=== PATIENT | female | born 1995 | race African-American/Black ===

== ENCOUNTER 2020-06-29 14:07 | Emergency (ER) | payer BC, SELFPAY ==
[2020-06-29 14:12] VITALS: BP 122/88; PULSE 80; RESP 18; TEMP 36.6; O2SAT 99
--- NOTE | 2020-06-29 14:28 | PC.NURSE ---
Blood Glucose was 66 at 14:28
[2020-06-29 14:29] LABS: Glucose Point of Care 66 (65-105)
[2020-06-29 14:41] LABS: Basophils Percent Auto 0.5 % (0.2-1.2); Eosinophils Absolute Auto 0.1 K/mm3 (0-0.3); Eosinophils Percent Auto 1.5 % (0-4.4); Hematocrit 44.9 % (37.0-47.0); Hemoglobin 14.4 g/dL (12.0-15.0); Immature Granulocyte Absolute 0.01 K/mm3 (0.00-0.031); Immature Granulocyte Percent A 0.2 % (0-0.5); Lymphocytes Absolute Auto 2.18 K/mm3 (0.9-3.2); Lymphocytes Percent Auto 35.3 % (18.3-44.2); Mean Corpuscular HGB Conc 32.1 g/dl (32-36); Mean Corpuscular Volume 84.2 fl (80-100); Mean Platelet Volume 10.7 fl (7.4-10.4); Monocytes Absolute Auto 0.4 K/mm3 (0.1-0.6); Neutrophils Absolute Auto 3.5 K/mm3 (1.3-6.7); Neutrophils Percent Auto 56.5 % (45.5-73.1); Platelet Count Result 275 k/mm3 (150-375); Red Blood Count 5.33 M/mm3 (4.2-5.4); Red Cell Distribution Width 14.8 % (11.5-14.5); White Blood Count 6.2 K/mm3 (4.5-10.0)
[2020-06-29] MEDS: SODIUM CHLORIDE 0.9% IV 1,000 ML 999 ML (14:49)
[2020-06-29 14:55] LABS: Alanine Aminotransferase 14 U/L (4-35); Albumin Level 4.5 g/dL (3.5-5.1); Alkaline Phosphatase 109 U/L (38-126); Anion Gap 11 mmol/L (8-16); Aspartate Amino Transferase 26 U/L (14-36); Bilirubin,Total 0.3 mg/dL (0.2-1.3); Blood Urea Nitrogen 4 mg/dL (7-17); Calcium 9.4 mg/dL (8.4-10.2); Carbon Dioxide 24 mmol/L (22-30); Chloride 102 mmol/L (98-107); Estimated CRCL calculation 115 ml/min; Estimated Glomerular Filt Rate > 60; Glucose 90 mg/dL (65-105); Lipase 37 U/L (23-300); Potassium 2.9 mmol/L (3.4-5.0); Sodium 137 mmol/L (137-145)
--- NOTE | 2020-06-29 15:27 | ED.GENADULT ---
HPI - General Adult General Chief complaint: Nausea/Vomiting/Diarrhea Stated complaint: REACTIVE HYPOGLYCEMIA, N/V Time Seen by Provider: 06/29/20 14:37 Source: patient Mode of arrival: ambulatory Limitations: no limitations History of Present Illness HPI narrative: 24-year-old female with a documented history of reactive hypoglycemia, diagnosed in 2012. She states that her last episode was probably 1 year ago. This episode started last evening, she was able to eat a light dinner but was feeling nauseous already she took her medication but was unable to stop the vomiting. She was seen in another facility today and they tried to treat her with glucose tablets which she could not take because she was vomiting. Her glucose here was 66, she states at home her morning glucoses are generally 65-70. She denies any recent illnesses trigger. Onset (ago): hour(s) Related Data Allergies Allergy/AdvReac Type Severity Reaction Status Date / Time Sulfa (Sulfonamide Allergy Intermediate rash Verified 10/13/18 12:18 Antibiotics) beeswax Allergy Unknown rash/swelli Verified 04/28/18 11:56 ng nickel Allergy Unknown rash Verified 04/28/18 11:56 Review of Systems Review of Systems: All systems reviewed & are unremarkable except as noted in HPI and below Exam Const: General: no acute distress and alert Orientation/consciousness: patient oriented x3 HENMT: Head: normal to inspection Mouth: Yes moist mucous membranes Resp: Effort & Inspection: normal respiratory effort Auscultation: clear to auscultation bilaterally Cardio: Rate: regular rate Rhythm: regular rhythm GI: GI Palp: Yes Soft to palpation Auscultation: normal bowel sounds Skin: General skin exam: normal color Rashes: no rashes Course Course Emergency Course: Patient states that she is feeling better after the D5 infusion, back to her normal self. Will check [id number] glucose and do a p.o. challenge. Tolerating water and crackers. Ready for discharge. Vital Signs Vital signs: Vital Signs Temperature 36.6 C 06/29/20 14:12 Pulse Rate 80 06/29/20 14:12 Respiratory Rate 18 06/29/20 14:12 Blood Pressure 122/88 06/29/20 14:12 Pulse Oximetry 99 06/29/20 14:12 Temperature 36.6 C 06/29/20 14:12 Pulse Rate 78 06/29/20 15:54 Respiratory Rate 18 06/29/20 15:54 Blood Pressure 132/68 06/29/20 15:54 Pulse Oximetry 99 06/29/20 15:54 Medical Decision Making Vital Signs Vital Signs: Vital Signs Temperature 36.6 C 06/29/20 14:12 Pulse Rate 80 06/29/20 14:12 Respiratory Rate 18 06/29/20 14:12 Blood Pressure 122/88 06/29/20 14:12 Pulse Oximetry 99 06/29/20 14:12 Temperature 36.6 C 06/29/20 14:12 Pulse Rate 78 06/29/20 15:54 Respiratory Rate 18 06/29/20 15:54 Blood Pressure 132/68 06/29/20 15:54 Pulse Oximetry 99 06/29/20 15:54 Lab Data Result diagrams: 06/29/20 14:35 06/29/20 14:35 Labs: Lab Results 06/29/20 06/29/20 06/29/20 Range/Units 14:25 14:35 14:35 WBC 6.2 (4.5-10.0) K/mm3 RBC 5.33 (4.2-5.4) M/mm3 Hgb 14.4 (12.0-15.0) g/dL Hct 44.9 (37.0-47.0) % MCV 84.2 (80-100) fl MCH 27.0 (26-34) pg MCHC 32.1 (32-36) g/dl RDW 14.8 H (11.5-14.5) % Plt Count 275 (150-375) k/mm3 MPV 10.7 H (7.4-10.4) fl Immature Gran % (Auto) 0.2 (0-0.5) % Neut % (Auto) 56.5 (45.5-73.1) % Lymph % (Auto) 35.3 (18.3-44.2) % [place] % (Auto) 6.0 (2.6-8.5) % Eos % (Auto) 1.5 (0-4.4) % Baso % (Auto) 0.5 (0.2-1.2) % Lymph # (Auto) 2.18 (0.9-3.2) K/mm3 [place] # (Auto) 0.4 (0.1-0.6) K/mm3 Eos # (Auto) 0.1 (0-0.3) K/mm3 Baso # (Auto) 0.0 (0.0-0.1) K/mm3 Abs Immat Gran (auto) 0.01 (0.00-0.031) K/mm3 Absolute Neuts (auto) 3.5 (1.3-6.7) K/mm3 Absolute Nucleated RBC 0.0 (0.0-0.012) K/mm3 Nucleated RBC % 0.0 (0.0-0.2) % Sodium 137 (137-145) mmol/L Potassium 2.9 L
[2020-06-29 15:32] LABS: Add Urine Microscopic? NO; Appearance Urine Clear (Clear); Bilirubin Urine Negative (Negative); Blood Urine Negative (Negative); Color Urine Yellow (Yellow); Glucose Urine UA Negative (Negative); Ketones Urine Negative (Negative); Leukocyte Esterase Ur Negative LEU/UL (Negative); Nitrate Urine Negative (Negative); Protein Urine Negative (Negative); Specific Grav Ur 1.017 (1.001-1.035); Urobilinogen Urine Negative mg/dL (<2.0)
[2020-06-29] MEDS: DEXTROSE 5%/0.9% SOD CHL 1,000 ML 999 ML IV CONT (15:53)
[2020-06-29 15:54] VITALS: BP 132/68; PULSE 78; RESP 18; O2SAT 99
--- NOTE | 2020-06-29 16:54 | PC.NURSE ---
Blood Glucose was 221 at 1654
[2020-06-29 16:57] LABS: Glucose Point of Care 221 (65-105)
[2020-06-29 18:37] VITALS: BP 132/78; PULSE 78; RESP 18; O2SAT 99
== END 2020-06-29 18:38 | disposition home or self-care (01) ==
PROVIDERS: Emergency Provider Emergency Medicine
DX: E16.1 Other hypoglycemia (principal)
CPT/HCPCS: 36415; 80053; 81003; 81025; 83690; 85025; 96360; 96361; 99283; J7030; J7042

== ENCOUNTER 2023-01-21 15:29 | Emergency (ER) | payer SELFPAY ==
[2023-01-21] VITALS (28 sets, daily range): BP systolic 105–139; BP diastolic 58–92; PULSE 97–122; RESP 16–35; TEMP 36.6–37.9; O2SAT 99–100
--- NOTE | ~2023-01-21 | CT_ITS ---
EXAMINATION: CT abdomen pelvis w con INDICATION: Abdominal pain, nausea and vomiting TECHNIQUE: Computed tomographic images of the abdomen and pelvis were obtained after the administrati on of 100 cc of Omnipaque 350 intravenous contrast. The dose-length product (DLP) was 509.22 mGy-cm. Automated exposure control and iterative reconstruction technique were employed. COMPARISON: None available FINDINGS: The lung bases are clear. The heart size is normal. The liver, spleen, pancreas, gallbladde r, and adrenal glands are normal. The kidneys are unremarkable. No pathologically enlarged abdominal or pelvic lymph nodes are identified. There is no free intraperitoneal gas or evidence of bowel obstr uction. The appendix is normal. There is liquid stool in the colon to the level of the rectum. A smal l amount of free fluid in the pelvis is likely physiologic. IMPRESSION: 1. Liquid stool in the colon to the level of the rectum, consistent with diarrhea. Reviewed, dictated and finalized at location [facility]. [facility] IMPRESSION: 1. Liquid stool in the colon to the level of the rectum, consistent with diarrh ea.
--- NOTE | ~2023-01-21 | XR_ITS ---
EXAMINATION: XR chest 2V DATE: 01/21/2023 17:36 INDICATION: Epigastric pain TECHNIQUE: PA and lateral views of the chest are obtained. COMPARISON: None available FINDINGS: The lungs are free of acute opacities. No pleural effusion or pneumothorax. The cardiomedia stinal silhouette is normal. The visualized bones and soft tissues are unremarkable. IMPRESSION: 1. No acute cardiopulmonary abnormality. Reviewed, dictated and finalized at location F. [employer]
[2023-01-21 16:47] LABS: Glucose Point of Care 85 mg/dl (65-105)
[2023-01-21 16:59] LABS: Basophils Percent Auto 0.1 % (0.2-1.2); Eosinophils Percent Auto 0.1 % (0-4.4); Hemoglobin 13.6 g/dL (12.0-15.0); Immature Granulocyte Absolute 0.02 K/mm3 (0.00-0.031); Immature Granulocyte Percent A 0.2 % (0-0.5); Lymphocytes Absolute Auto 0.55 K/mm3 (0.9-3.2); Lymphocytes Percent Auto 5.9 % (18.3-44.2); Mean Corpuscular HGB Conc 31.6 g/dl (32-36); Mean Corpuscular Hemoglobin 25.4 pg (26-34); Mean Corpuscular Volume 80.2 fl (80-100); Mean Platelet Volume 10.1 fl (7.4-10.4); Monocytes Absolute Auto 0.5 K/mm3 (0.1-0.6); Monocytes Percent Auto 4.9 % (2.6-8.5); Neutrophils Absolute Auto 8.3 K/mm3 (1.3-6.7); Neutrophils Percent Auto 88.8 % (45.5-73.1); Platelet Count Result 351 k/mm3 (150-375); Red Blood Count 5.36 M/mm3 (4.2-5.4); Red Cell Distribution Width 15.6 % (11.5-14.5); White Blood Count 9.3 K/mm3 (4.5-10.0)
[2023-01-21 17:08] LABS: Alanine Aminotransferase 22 U/L (6-35); Albumin Level 4.4 g/dL (3.5-5.1); Alkaline Phosphatase 146 U/L (38-126); Anion Gap 11 mmol/L (8-16); Aspartate Amino Transferase 29 U/L (14-36); Bilirubin,Total 0.8 mg/dL (0.2-1.3); Blood Urea Nitrogen 9 mg/dL (7-17); Calcium 8.9 mg/dL (8.4-10.2); Carbon Dioxide 21 mmol/L (22-30); Chloride 106 mmol/L (98-107); Estimated CRCL calculation 114 ml/min; Estimated Glomerular Filt Rate > 60; Glucose 108 mg/dL (65-110); Lipase 41 U/L (23-300); Potassium 3.8 mmol/L (3.4-5.0); Sodium 138 mmol/L (137-145)
--- NOTE | 2023-01-21 17:19 | ECG_ITS ---
Measurements Intervals Marcus Rate: 107 P: 51 ID: [id number] QRS: 67 QRSD: 85 T: 15 QT: 328 QTc: 438 Interpretive Statements SINUS TACHYCARDIA BORDERLINE ST-T WAVE ABNORMALITY- ANT/INF LEADS ABNORMAL ECG NO PREVIOUS ECG AVAILABLE FOR COMPARISON Electronically Signed On 01-21-2023 19:19:56 MORTGAGE CLERK by Nicholas Yang D.O.
--- NOTE | 2023-01-21 17:20 | ED.NAVMDI ---
HPI - Nausea/Vomiting/Diarrhea General Chief complaint: Nausea/Vomiting/Diarrhea Stated complaint: Low blood sugar Time Seen by Provider: 01/21/23 17:10 History of Present Illness HPI Narrative: 27-year-old female with a history of reactive hypoglycemia reports for epigastric abdominal pain and vomiting x17 episodes today. Patient states she went to bed last night feeling normal, woke up this morning feeling ill. Patient reports she has not been able to eat or drink much of anything today, other than sips of Gatorade. She states her lowest blood glucose at home was 72. She has not been able to keep down her oral glucose tabs. Patient reports she was diagnosed with bronchitis 2 weeks ago at urgent care, and has been taking amoxicillin ever since. Reports she has a couple of tabs left. Pt also c/o chills and diarrhea today. She does report a small amount of blood tinges vomit today while in triage, but denies other episodes of hematemesis or hemoptysis. She denies fever, body aches, back pain, cough, shortness of breath, chest pain, congestion, urinary complaints, melena, hematochezia, coffee-ground emesis. Related Data Home Medications Medication Instructions Recorded Confirmed sertraline 100 mg tablet (Zoloft) 100 mg PO DAILY 11/07/20 Allergies Allergy/AdvReac Type Severity Reaction Status Date / Time Sulfa (Sulfonamide Allergy Intermediate rash Verified 11/07/20 14:13 Antibiotics) beeswax Allergy Unknown rash/swelli Verified 11/07/20 14:13 ng nickel Allergy Unknown rash Verified 11/07/20 14:13 Review of Systems Review of Systems: CONSTITUTIONAL: Denies fever EYES: Denies visual changes, redness, or discharge. ENT: Denies rhinorrhea, congestion, sore throat, or otalgia. CARDIOVASCULAR: Denies chest pain, palpitations, or edema. RESPIRATORY: Denies cough or dyspnea. GASTROINTESTINAL: See HPI GENITOURINARY: Denies dysuria or hematuria. SKIN: Denies rash or itching. MUSCULOSKELETAL: Denies back pain, joint pain, or myalgia. NEUROLOGIC: Denies headache, numbness, dizziness, or weakness. PSYCHIATRIC: Denies anxiety or depression. [facility] Social History Social History Smoking status: Never smoker Alcohol intake: never Substance use: never Exam Narrative: GENERAL: Well-appearing, well-nourished, and in no acute distress. HEAD: Normocephalic, atraumatic. EYES: PERRLA and EOMI. ENT: Nares clear, no rhinorrhea or epistaxis. Mucous membranes moist. Oropharynx without tonsillar hypertrophy exudate or other lesions. NECK: Supple. No adenopathy or masses. No carotid bruits or JVD CHEST: Clear to auscultation. No respiratory distress. No wheezes rales or rhonchi HEART: Regular rate and rhythm. No murmur heard. Normal peripheral pulses. ABDOMEN: Soft, nondistended, normal active bowel sounds. Tenderness to deep palpation of the epigastrium with voluntary guarding. No masses, rigidity. No peritoneal signs. EXTREMITIES: Normal range of motion. No edema. SKIN: Warm, dry, no rash. NEURO: No focal deficits. Alert and oriented x3. PSYCH: Normal mood and affect. Course Course Emergency Course: 1914: Patient reevaluated. She reports she is feeling much better, no vomiting since she received medications and fluids. Heart rate down to 102 in the room. Discussed lab and imaging findings with the patient's thus far, and spoke with her that her symptoms are likely due to gastroenteritis and dehydration. Offered another liter of fluids to patient for tachycardia. She agrees with the plan. Vital Signs Vital signs: Vital Signs Temperature 98.3 F 01/21/23 16:20 Pulse Rate 122 H 01/21/23 16:20 Respiratory Rate 18 01/21/23 16:20 Blood Pressure 128/58 L 01/21/23 16:20 Pulse Oximetry 100 01/21/23 16:20 Temperature 98 F 01/21/23 21:24 Pulse Rate 98 01/21/23 21:24 Respiratory Rate 16 01/21/23 21:24 Blood Pressure 105/72 01/21/23 2
[2023-01-21 17:31] LABS: Platelet Estimate Adequate (Adequate)
[2023-01-21 17:32] LABS: Ovalocytes 1+ (NORMAL); Schistocytes None Seen (NORMAL)
[2023-01-21] MEDS: SODIUM CHLORIDE 0.9% IV 1,000 ML 999 ML IV CONT ×2 (17:49→19:38)
[2023-01-21] MEDS: ONDANSETRON INJ 4 MG/2 ML VIAL IV PUSH (17:49)
[2023-01-21 18:21] LABS: Influenza A QL RT-PCR Negative (Negative); Influenza B QL RT-PCR Negative (Negative); SARS-CoV-2 RNA PCR Negative
--- NOTE | 2023-01-21 20:06 | PC.NURSE ---
Pt. ambulatory to bathroom, gait steady.
--- NOTE | 2023-01-21 20:08 | PC.NURSE ---
Pt. given p.o challenge, tolerating fluids well
[2023-01-21 20:22] LABS: Appearance Urine Cloudy (Clear); Bacteria Urine None Seen /hpf; Bilirubin Urine 2+ (Negative); Blood Urine Negative (Negative); Color Urine Dark Yellow (Yellow); Glucose Urine UA Negative (Negative); Ketones Urine 3+ mg/dL (Negative); Leukocyte Esterase Ur Trace LEU/UL (Negative); Need Manual Microscopic Reviewed; Nitrate Urine Negative (Negative); Non Pathogenic Casts 0-2; Protein Urine 1+ mg/dL (Negative); Specific Grav Ur 1.029 (1.001-1.035); Squamous Epithelial Cell Urine Moderate /hpf (Few); WBC Urine 0-5 /hpf; pH Urine 5.5 (5.0-9.0)
[2023-01-21 20:25] LABS: Add Urine Microscopic? YES
== END 2023-01-21 21:26 | disposition home or self-care (01) ==
PROVIDERS: Emergency Medicine; Emergency Provider Physician Assistant
DX: K52.9 Noninfective gastroenteritis and colitis, unspecified (principal); E86.0 Dehydration; Z20.822 Contact with and (suspected) exposure to COVID-19
CPT/HCPCS: 36415; 71046; 74177; 80053; 81001; 81025; 82948; 83690; 85025; 87636; 93005; 96361; 96365; 96375; 99284; J0131; J2405; J7030; Q9967

== ENCOUNTER 2023-06-27 15:49 | Emergency (ER) | payer BC, SELFPAY ==
[2023-06-27 15:51] VITALS: BP 138/89; PULSE 102; RESP 20; TEMP 36.4; O2SAT 100
--- NOTE | 2023-06-27 16:11 | ED.GENADULT ---
[facility] - General Adult General Chief complaint: Skin/Abscess/Foreign Body Stated complaint: Lupus Flare up Time Seen by Provider: 06/27/23 15:57 Source: patient Mode of arrival: ambulatory Limitations: no limitations History of Present Illness HPI narrative: This is a 27-year-old female who presents to the ED with chief complaint of multiple joint pain and skin lesions for the past 2 days. Patient states she initially had some joint pains, but soon noticed some darkening of the skin in certain areas. Reports pain to the bilateral knees, bilateral ankles and shins. Reports skin rashes in the bilateral shins. She states that the pain and skin rash have both been worsening since onset. Patient states she was seen in urgent care earlier today and referred to the ER for further evaluation. She states that she recently took amoxicillin for an ear infection but has never had any problems with amoxicillin in the past. Denies fevers, chills, nausea, vomiting, diarrhea, headache, oral complaints. Related Data Home Medications Medication Instructions Recorded Confirmed sertraline 100 mg tablet (Zoloft) 100 mg PO DAILY 11/07/20 Allergies Allergy/AdvReac Type Severity Reaction Status Date / Time Sulfa (Sulfonamide Allergy Intermediate rash Verified 11/07/20 14:13 Antibiotics) beeswax Allergy Unknown rash/swelli Verified 11/07/20 14:13 ng nickel Allergy Unknown rash Verified 11/07/20 14:13 Review of Systems Review of Systems: All systems as dictated in [facility] Social History Social History Smoking status: Never smoker Alcohol intake: never Substance use: never Exam Narrative: GENERAL: Well-appearing, well-nourished, and in no acute distress. HEAD: Normocephalic, atraumatic. EYES: PERRLA and EOMI. ENT: Nares clear, no rhinorrhea or epistaxis. Mucous membranes moist. Oropharynx without tonsillar hypertrophy exudate or other lesions. No oral lesions. NECK: Supple. No adenopathy or masses. CHEST: No respiratory distress. Clear to auscultation. No wheezes rales or rhonchi HEART: Regular rate and rhythm. No murmur heard. Normal peripheral pulses. ABDOMEN: Soft, nontender, nondistended, normal active bowel sounds. MSK: RLE: No joint effusion. No deformity. Mild tenderness to the knee, ankle. F ROM LLE: No joint effusion. No deformity. Mild tenderness to the knee, ankle. F ROM SKIN: Scattered dark red lesions to the bilateral shins. Tender to palpation. About 5-6 lesions per side. Nodular. NEURO: Alert and oriented x3. No focal deficits. PSYCH: Normal mood and affect. Course Vital Signs Vital signs: Vital Signs Temperature 97.5 F L 06/27/23 15:51 Pulse Rate 102 H 06/27/23 15:51 Respiratory Rate 20 06/27/23 15:51 Blood Pressure 138/89 06/27/23 15:51 Pulse Oximetry 100 06/27/23 15:51 Oxygen Delivery Room Air 06/27/23 15:51 Temperature 97.5 F L 06/27/23 15:51 Pulse Rate 102 H 06/27/23 15:51 Respiratory Rate 20 06/27/23 15:51 Blood Pressure 138/89 06/27/23 15:51 Pulse Oximetry 100 06/27/23 15:51 Oxygen Delivery Room Air 06/27/23 15:51 Medical Decision Making MDM Narrative Medical decision making narrative: This is a 27-year-old female who presents to the ED with chief complaint of bilateral joint pains in the lower extremities along with associated skin rash. Vitals are normal. Afebrile. Exam does reveal dark red papules throughout the lower extremities symmetrically. They are tender to touch. Mild bilateral knee and ankle tenderness. Full range of motion. Lab work is unremarkable. Exam is consistent with erythema nodosum. This may be related to her recent diagnosis of upper respiratory infection/urine infection. May be due to the recent amoxicillin prescription. The etiology is unclear at this point. Encouraged her to follow-up with her primary care doctor. Prescription for napr
[2023-06-27] MEDS: methylPREDNISolone SOD SUCC 125 MG VIAL IV PUSH (16:23)
[2023-06-27] MEDS: SODIUM CHLORIDE 0.9% IV 1,000 ML 999 ML IV CONT (16:23)
[2023-06-27 16:24] LABS: Basophils Absolute Auto 0.1 K/mm3 (0.0-0.1); Basophils Percent Auto 0.8 % (0.2-1.2); Eosinophils Absolute Auto 0.1 K/mm3 (0-0.3); Eosinophils Percent Auto 1.4 % (0-4.4); Hematocrit 39.7 % (37.0-47.0); Hemoglobin 12.5 g/dL (12.0-15.0); Immature Granulocyte Absolute 0.04 K/mm3 (0.00-0.031); Immature Granulocyte Percent A 0.5 % (0-0.5); Lymphocytes Absolute Auto 2.72 K/mm3 (0.9-3.2); Lymphocytes Percent Auto 30.9 % (18.3-44.2); Mean Corpuscular HGB Conc 31.5 g/dl (32-36); Mean Corpuscular Hemoglobin 26.4 pg (26-34); Mean Corpuscular Volume 83.9 fl (80-100); Monocytes Absolute Auto 0.6 K/mm3 (0.1-0.6); Monocytes Percent Auto 6.2 % (2.6-8.5); Neutrophils Absolute Auto 5.3 K/mm3 (1.3-6.7); Neutrophils Percent Auto 60.2 % (45.5-73.1); Platelet Count Result 343 k/mm3 (150-375); Red Blood Count 4.73 M/mm3 (4.2-5.4); Red Cell Distribution Width 13.9 % (11.5-14.5); White Blood Count 8.8 K/mm3 (4.5-10.0)
[2023-06-27 16:34] LABS: Alanine Aminotransferase 33 U/L (6-35); Albumin Level 3.9 g/dL (3.5-5.1); Alkaline Phosphatase 107 U/L (38-126); Anion Gap 7 mmol/L (8-16); Aspartate Amino Transferase 41 U/L (14-36); Bilirubin,Total 0.3 mg/dL (0.2-1.3); Blood Urea Nitrogen 7 mg/dL (7-17); Calcium 9.1 mg/dL (8.4-10.2); Carbon Dioxide 27 mmol/L (22-30); Chloride 103 mmol/L (98-107); Estimated CRCL calculation 135 ml/min; Estimated Glomerular Filt Rate > 60; Glucose 96 mg/dL (65-110); Potassium 3.4 mmol/L (3.4-5.0); Sodium 137 mmol/L (137-145)
[2023-06-27] MEDS: KETOROLAC 15 MG/ML VIAL (*BKC) IV PUSH (17:32)
[2023-06-27] MEDS: ACETAMINOPHEN 500 MG TABLET 1000 MG PO (17:32)
[2023-06-27 18:10] VITALS: BP 130/82; PULSE 96; RESP 16; O2SAT 100
== END 2023-06-27 18:10 | disposition home or self-care (01) ==
PROVIDERS: Emergency Provider Physician Assistant
DX: L52 Erythema nodosum (principal)
CPT/HCPCS: 36415; 80053; 85025; 96361; 96374; 96375; 99284; A9270; J1885; J2930; J7030

== ENCOUNTER 2023-08-27 03:20 | Emergency (ER) | payer BC, SELFPAY ==
--- NOTE | ~2023-08-27 | XR_ITS ---
Portable chest x-ray Comparison: 01/21/2023 Clinical History: Shortness of breath Findings: Lungs are clear, without focal consolidation or pleural effusion. Cardiomediastinal silho uette is stable. Bones and soft tissues are unremarkable. Impression: Normal chest. Reviewed, dictated and finalized at location . Impression: Normal chest.
--- NOTE | ~2023-08-27 | CT_ITS ---
CT of the Abdomen and Pelvis: Indication: Left flank pain Technique: 2.5 mm axial scans were obtained through the abdomen and pelvis following intravenous adm inistration of 100 cc of Omnipaque 350. Dose reduction technique was used on this scan by utilizing a utomated exposure control and iterative reconstruction technique. The dose-length product (DLP) was 9 51.43 mGy-cm. COMPARISON: 01/21/2023 Findings: Scans through the lung bases demonstrated probable partially imaged hazy airspace disease in the right lower lobe. The liver, spleen, pancreas, gallbladder, adrenals and kidneys are within normal limits. No evidence of aortic aneurysm. No lymphadenopathy. No bowel obstruction or bowel wall thickening. There is no evidence to suggest acute appendicitis. Images through the pelvis were performed. Urinary bladder unremarkable. No adnexal mass seen. No asci neal. Impression: Partially imaged hazy airspace disease right lower lobe, suspicious for pneumonia. Dedicated chest im aging should be strongly considered. No other significant findings identified. Reviewed, dictated and finalized at location . Impression: Partially imaged hazy airspace disease right lower lobe, suspicious for pneumon ia. Dedicated chest imaging should be strongly considered. No other significant findings identified.
[2023-08-27 03:31] VITALS: BP 133/86; PULSE 80; RESP 15; TEMP 36.5; O2SAT 98
[2023-08-27 03:43] LABS: Basophils Absolute Auto 0.1 K/mm3 (0.0-0.1); Basophils Percent Auto 0.5 % (0.2-1.2); Eosinophils Absolute Auto 0.2 K/mm3 (0-0.3); Eosinophils Percent Auto 2.2 % (0-4.4); Hematocrit 37.2 % (37.0-47.0); Hemoglobin 11.5 g/dL (12.0-15.0); Immature Granulocyte Absolute 0.05 K/mm3 (0.00-0.031); Immature Granulocyte Percent A 0.5 % (0-0.5); Lymphocytes Absolute Auto 3.24 K/mm3 (0.9-3.2); Lymphocytes Percent Auto 34.9 % (18.3-44.2); Mean Corpuscular HGB Conc 30.9 g/dl (32-36); Mean Corpuscular Hemoglobin 26.6 pg (26-34); Mean Corpuscular Volume 86.1 fl (80-100); Mean Platelet Volume 10.3 fl (7.4-10.4); Monocytes Absolute Auto 0.8 K/mm3 (0.1-0.6); Monocytes Percent Auto 8.8 % (2.6-8.5); Neutrophils Absolute Auto 4.9 K/mm3 (1.3-6.7); Neutrophils Percent Auto 53.1 % (45.5-73.1); Platelet Count Result 288 k/mm3 (150-375); Red Blood Count 4.32 M/mm3 (4.2-5.4); Red Cell Distribution Width 14.6 % (11.5-14.5); White Blood Count 9.3 K/mm3 (4.5-10.0)
[2023-08-27 03:45] LABS: Appearance Urine Clear (Clear); Bilirubin Urine Negative (Negative); Blood Urine Negative (Negative); Color Urine Yellow (Yellow); Glucose Urine UA Negative (Negative); Ketones Urine Negative (Negative); Leukocyte Esterase Ur Negative LEU/UL (Negative); Nitrate Urine Negative (Negative); Protein Urine Negative (Negative); Specific Grav Ur 1.008 (1.001-1.035); Urobilinogen Urine 0.2 mg/dL (<2.0)
[2023-08-27 03:46] LABS: Add Urine Microscopic? NO
[2023-08-27 04:00] LABS: Alanine Aminotransferase 18 U/L (6-35); Albumin Level 3.8 g/dL (3.5-5.1); Alkaline Phosphatase 84 U/L (38-126); Anion Gap 5 mmol/L (8-16); Aspartate Amino Transferase 23 U/L (14-36); Bilirubin,Total 0.4 mg/dL (0.2-1.3); Blood Urea Nitrogen 7 mg/dL (7-17); Calcium 8.7 mg/dL (8.4-10.2); Carbon Dioxide 25 mmol/L (22-30); Chloride 104 mmol/L (98-107); Estimated CRCL calculation 135 ml/min; Estimated Glomerular Filt Rate > 60; Glucose 103 mg/dL (65-110); Lipase 53 U/L (23-300); Potassium 3.3 mmol/L (3.4-5.0); Sodium 134 mmol/L (137-145)
--- NOTE | 2023-08-27 04:58 | ED.GENADULT ---
HPI - General Adult General Chief complaint: Urogenital-Female Stated complaint: left flank pain, frequent urination Time Seen by Provider: 08/27/23 03:23 History of Present Illness HPI narrative: 28-year-old female presented the ED for evaluation of left flank pain. Patient states she does have some abdominal pain. Patient denies any pain with urination. Patient denies any prior history of kidney stones. Related Data Home Medications Medication Instructions Recorded Confirmed escitalopram oxalate 20 mg tablet 20 mg PO DAILY 08/27/23 08/27/23 hydroxyzine HCl 10 mg tablet 10 mg PO QID PRN 08/27/23 08/27/23 Allergies Allergy/AdvReac Type Severity Reaction Status Date / Time Sulfa (Sulfonamide Allergy Intermediate rash Verified 08/27/23 10:34 Antibiotics) beeswax Allergy Unknown rash/swelli Verified 08/27/23 10:34 ng nickel Allergy Unknown rash Verified 08/27/23 10:34 Review of Systems Review of Systems: All systems reviewed & are unremarkable except as noted in HPI and below PMFSH Past Medical History Medical History Acute anxiety Depression Family History Family History (Updated 08/27/23 @ 10:38 by Mya Jernigan MA) Other Cervical cancer Diabetes mellitus Hypertension Kidney malignancy Lung cancer Social History Social History (Updated 08/27/23 @ 10:39 by Mya Jernigan MA) Smoking status: Never smoker Alcohol intake: never Substance use: never Lack of Transportation: No Lack of Food: Never True Current Housing: I Have Housing Concerned About Future Housing: No Difficulty Paying Gas/Electric Bills: No Difficulty Paying for Meds: No Currently Unemployed: No Education: Bachelor's Degree Difficulty w/ Childcare or Family Care: No Living arrangements: with family Occupation/Education: occupation Additional occupation/education comments: [employer] Gender identity (if verbalized by the patient): Female Sexual Orientation (if Verbalized by the Patient): Bisexual Exam Narrative: APPEARANCE: Well appearing, no pain, no distress, well-nourished. HEAD: normocephalic, atraumatic. EYES: PERRLA/EOMI, conjunctivae clear. NOSE: Normal no drainage NECK: Supple. No adenopathy, no masses. RESPIRATORY: Airway patent, respirations nonlabored. Clear to auscultation bilaterally, no rales, rhonchi, wheezing. CARDIOVASCULAR: Regular rate and rhythm without murmurs rubs or gallops. ABDOMINAL: Soft, left CVA tenderness to palpation MUSCULOSKELETAL: Moves all extremities. Strength/ROM intact, No edema, No calf tenderness. NEURO: Alert. Cranial nerves II through XII intact. Grossly intact SKIN: Warm, dry. Normal Color Course Course Emergency Course: 28-year-old female presented to the emergency department for evaluation of flank pain. Patient was afebrile with no leukocytosis and a stable hemoglobin. UA showed no evidence of infection. Chest x-ray abdominal CT showed no acute abnormalities to explain the patient's symptoms. Patient was up and the results of the work-up and was encouraged of close follow-up with her primary care physician. Vital Signs Vital signs: Vital Signs Temperature 97.7 F 08/27/23 03:31 Pulse Rate 80 08/27/23 03:31 Respiratory Rate 15 08/27/23 03:31 Blood Pressure 133/86 08/27/23 03:31 Pulse Oximetry 98 08/27/23 03:31 Temperature 97.7 F 08/27/23 03:31 Pulse Rate 76 08/27/23 06:17 Respiratory Rate 14 08/27/23 06:17 Blood Pressure 128/84 08/27/23 06:17 Pulse Oximetry 100 08/27/23 06:17 Medical Decision Making Differential Diagnosis Differential Diagnosis: UTI, kidney stone, colitis, gastritis Vital Signs Vital Signs: Vital Signs Temperature 97.7 F 08/27/23 03:31 Pulse Rate 80 08/27/23 03:31 Respiratory Rate 15 08/27/23 03:31 Blood Pressure 133/86 08/27/23 03:31 Pulse Oximetry 98 08/27/23 03:31 Temp
[2023-08-27 06:17] VITALS: BP 128/84; PULSE 76; RESP 14; O2SAT 100
== END 2023-08-27 06:51 | disposition home or self-care (01) ==
PROVIDERS: Emergency Provider Emergency Medicine
DX: R10.9 Unspecified abdominal pain (principal); F41.9 Anxiety disorder, unspecified; F32.A Depression, unspecified
CPT/HCPCS: 36415; 71045; 74177; 80053; 81003; 81025; 83690; 85025; 99284; Q9967

== ENCOUNTER 2024-01-01 11:31 | Observation (INO) | payer SELFPAY ==
--- NOTE | ~2024-01-01 | XR_ITS ---
EXAMINATION: XR small bowel follow through DATE: 01/03/2024 10:52 INDICATION: Right lower quadrant abdominal pain. TECHNIQUE: Oral contrast was administered, and a time course of radiographs of the abdomen was obtain ed. Fluoroscopy of the small bowel was performed. Fluoroscopy exposure time was 1.7 minutes. The tota l number of images was 10. COMPARISON: CT abdomen and pelvis 01/01/2024, 08/27/2023, 01/21/2023 FINDINGS: There are no dilated loops of bowel. There is fold thickening of 50 cm of terminal ileum. Transit tesfaye e from the stomach to proximal colon was approximately 15 minutes. IMPRESSION: 1. Chronic terminal ileitis, consistent with Crohn disease. Reviewed, dictated and finalized at location A. S BRANCH MANAGER
--- NOTE | ~2024-01-01 | CT_ITS ---
EXAMINATION: CT abdomen pelvis w con INDICATION: Right lower quadrant pain TECHNIQUE: Computed tomographic images of the abdomen and pelvis were obtained after the administrati on of 100 cc of Omnipaque 350 intravenous contrast. The dose-length product (DLP) was 979.72 mGy-cm. Automated exposure control and iterative reconstruction technique were employed. COMPARISON: 08/27/2023 FINDINGS: Minimal dependent atelectasis is present in the lung bases. The heart size is normal. The l iver, spleen, pancreas, gallbladder, and adrenal glands are normal. The kidneys are unremarkable. No pathologically enlarged abdominal or pelvic lymph nodes are identified. No free intraperitoneal gas o r evidence of bowel obstruction. There is there is submucosal fat deposition in the wall of the termi nal ileum. There are some areas of mild wall thickening and increased enhancement in nondistended loo ps of small bowel. IMPRESSION: 1. Findings of the small bowel which could reflect inflammatory bowel disease. Reviewed, dictated and finalized at location F. RECORDER
[2024-01-01 11:40] VITALS: BP 130/80; PULSE 69; RESP 16; TEMP 36.4; O2SAT 100
[2024-01-01 12:40] VITALS: BP 127/84; PULSE 67; RESP 18; O2SAT 100
--- NOTE | 2024-01-01 13:05 | ED.ABDPAIN ---
HPI - Abdominal Pain General Chief Complaint: Abdominal Pain Stated Complaint: abd pain Time Seen by Provider: 01/01/24 13:01 Source: patient Mode of arrival: ambulatory Limitations: no limitations History of Present Illness HPI narrative: 28 years old female came with nausea, vomiting and diarrhea started 2 days ago. Vomiting up to 8 times a day, diarrhea to 4 time a day. After physical examination at the urgent care, patient developed diffuse abdominal pain mainly lower abdomen. She denies radiation of pain for history of abdominal surgery. History of depression and anxiety. Patient's cousin have history of Crohn's disease, patient's father family have strong family history of autoimmune disease including systemic lupus Related Data Home Medications Medication Instructions Recorded Confirmed escitalopram oxalate 20 mg tablet 20 mg PO DAILY 08/27/23 01/01/24 hydroxyzine HCl 10 mg tablet 10 mg PO QID PRN (Drug) Ingestion 08/27/23 01/01/24 Allergies Allergy/AdvReac Type Severity Reaction Status Date / Time Sulfa (Sulfonamide Allergy Intermediate rash Verified 01/01/24 12:44 Antibiotics) beeswax Allergy Unknown rash/swelli Verified 01/01/24 12:44 ng nickel Allergy Unknown rash Verified 01/01/24 12:44 Review of Systems Review of Systems: All systems reviewed & are unremarkable except as noted in HPI and below PMFSH Past Medical History Medical History Acute anxiety Depression Family History Family History Other Cervical cancer Diabetes mellitus Hypertension Kidney malignancy Lung cancer Social History Social History Smoking status: Never smoker Alcohol intake: never Substance use: never Lack of Transportation: No Lack of Food: Never True Current Housing: I Have Housing Concerned About Future Housing: No Difficulty Paying Gas/Electric Bills: No Difficulty Paying for Meds: No Currently Unemployed: No Education: Bachelor's Degree Difficulty w/ Childcare or Family Care: No Living arrangements: with family Occupation/Education: occupation Additional occupation/education comments: [employer] Gender identity (if verbalized by the patient): Female Sexual Orientation (if Verbalized by the Patient): Bisexual Exam Narrative: General appearance: Well-developed, well-nourished Skin: Normal color Head: Normocephalic, nontraumatic Eyes: Clear conjunctiva ENT: Oropharynx normal, ears normal, nose normal Neck: Supple, nontender Chest and respiratory: Airway patent, no respiratory distress, no accessory muscle use Heart: Regular rate/rhythm Abdomen: Soft, diffuse abdominal tenderness, no organomegaly, quiet bowel sounds Vascular: Normal peripheral pulses, normal capillary refill. Musculoskeletal: Normal range of motion, nontender back Neurologic: Alert and oriented ?3, [employer] TECH[employer]ICIAN is normal as tested, no gross motor deficit Course Consultations Consultation #1: DR SHAH ADMIT TO HOSPITALIST Date: 01/01/24 Date: 01/01/24 Vital Signs Vital signs: Vital Signs Temperature 36.4 C 01/01/24 11:40 Pulse Rate 69 01/01/24 11:40 Respiratory Rate 16 01/01/24 11:40 Blood Pressure 130/80 01/01/24 11:40 Pulse Oximetry 100 01/01/24 11:40 Oxygen Delivery Room Air 01/01/24 11:40 Temperature 36.4 C 01/01/24 11:40 Pulse Rate 67 01/01/24 12:40 Respiratory Rate 18 01/01/24 12:40 Blood Pressure 127/84 01/01/24 12:40 Pulse Oximetry 100 01/01/24 12:40 Oxygen Delivery Room Air 0
[2024-01-01 13:22] LABS: Basophils Percent Auto 0.5 % (0.2-1.2); Eosinophils Absolute Auto 0.1 K/mm3 (0-0.3); Eosinophils Percent Auto 0.9 % (0-4.4); Hematocrit 40.8 % (37.0-47.0); Hemoglobin 12.5 g/dL (12.0-15.0); Immature Granulocyte Absolute 0.04 K/mm3 (0.00-0.031); Immature Granulocyte Percent A 0.6 % (0-0.5); Lymphocytes Absolute Auto 2.03 K/mm3 (0.9-3.2); Mean Corpuscular HGB Conc 30.6 g/dl (32-36); Mean Corpuscular Hemoglobin 24.7 pg (26-34); Mean Corpuscular Volume 80.5 fl (80-100); Mean Platelet Volume 10.2 fl (7.4-10.4); Monocytes Absolute Auto 0.4 K/mm3 (0.1-0.6); Monocytes Percent Auto 5.8 % (2.6-8.5); Neutrophils Absolute Auto 3.8 K/mm3 (1.3-6.7); Neutrophils Percent Auto 60.2 % (45.5-73.1); Platelet Count Result 342 k/mm3 (150-375); Red Blood Count 5.07 M/mm3 (4.2-5.4); Red Cell Distribution Width 15.7 % (11.5-14.5); White Blood Count 6.3 K/mm3 (4.5-10.0)
[2024-01-01 13:24] LABS: Appearance Urine Clear (Clear); Bilirubin Urine Negative (Negative); Blood Urine Negative (Negative); Color Urine Yellow (Yellow); Glucose Urine UA Negative (Negative); Ketones Urine Negative (Negative); Leukocyte Esterase Ur Negative LEU/UL (Negative); Nitrate Urine Negative (Negative); Protein Urine Negative (Negative); Urobilinogen Urine 0.2 mg/dL (<2.0); pH Urine 6.5 (5.0-9.0)
[2024-01-01 13:27] LABS: Add Urine Microscopic? NO
[2024-01-01] MEDS: HYDROmorphone HCL INJ (*CRX) 1 MG/ML SYR 0.5 MG IV PUSH (13:29)
[2024-01-01] MEDS: SODIUM CHLORIDE 0.9% IV 1,000 ML 999 ML IV CONT (13:30)
[2024-01-01] MEDS: ONDANSETRON INJ 4 MG/2 ML VIAL IV PUSH ×2 (13:30→16:25)
[2024-01-01 13:35] LABS: Alanine Aminotransferase 21 U/L (6-35); Albumin Level 4.1 g/dL (3.5-5.1); Alkaline Phosphatase 129 U/L (38-126); Anion Gap 8 mmol/L (8-16); Aspartate Amino Transferase 43 U/L (14-36); Bilirubin,Total 0.8 mg/dL (0.2-1.3); Blood Urea Nitrogen 4 mg/dL (7-17); Calcium 9.5 mg/dL (8.4-10.2); Carbon Dioxide 24 mmol/L (22-30); Chloride 105 mmol/L (98-107); Estimated CRCL calculation 162 ml/min; Estimated Glomerular Filt Rate > 60; Glucose 89 mg/dL (65-110); Lipase 32 U/L (23-300); Potassium 3.3 mmol/L (3.4-5.0); Sodium 137 mmol/L (137-145)
[2024-01-01] MEDS: POTASSIUM CHLORIDE 20 MEQ ER TABLET PO ×2 (14:41→17:15)
--- NOTE | 2024-01-01 15:02 | PM.IMHP ---
H&P: HPI History of Present Illness Date/Time: 01/01/24 16:30 Chief Complaint: Abdominal pain. Narrative: This is a very pleasant 28-year-old female with suspected history of systemic lupus erythematosus, depression, and anxiety who presented to the emergency department via private vehicle from home for evaluation of abdominal pain. The patient provides the following history. She has not been feeling well for couple of days with diffuse, lower abdominal discomfort, nausea, nonbloody and nonbilious emesis (up to 8 times a day), and several episodes of diarrhea a day. She presented to urgent care and was referred to the ED for further evaluation. She denies fever, chills, and sweats. No cold or flu symptoms. She denies hematemesis, melena, and hematochezia. She denies recent travel, antibiotic use, and sick contacts. Weight has remained stable. At the time of my evaluation she is resting comfortably and reports feeling a bit better. She had a bowel movement after being admitted to the floor reports that it was more formed than it has been. She continues to have some mild nausea. In the ED: She was afebrile on arrival with stable blood pressures. Labs were significant for a WBC count of 6.3, hemoglobin 12.5, potassium 3.3, creatinine 0.50, total bilirubin 0.8, AST 43, alkaline phosphatase 129, total protein 9.0, lipase 32. Urinalysis was unremarkable. CT of the abdomen and pelvis showed findings of the small bowel which could reflect inflammatory bowel disease. With further questioning she reports that her cousin has Crohn's disease and her paternal side has a strong family history of autoimmune disease including lupus. She is being admitted in this setting for pain control and GI consultation. Review of Systems Review of Systems: Twelve systems were reviewed and are negative except for as per HPI. [facility] Past Medical History Medical History (Updated 01/02/24 @ 00:37 by Stacia Bonner PA-C) Anxiety Depression Systemic lupus erythematosus Presumed diagnosis. She has an appointment with Rheumatology at [place] in the next couple of months. 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 Family History Family History Other Cervical cancer Diabetes mellitus Kidney failure Grandparent Diabetes mellitus Lung cancer Mother Diabetes mellitus Hypertension Social History Social History Social History: Surrogate medical decision maker: Suellen Jha, mother. Code status: Full code. Smoking status: Never smoker Alcohol intake: never Substance use: never Do You Feel Safe in your Home?: Yes Lack of Transportation: No Lack of Food: Never True Current Housing: I Have Housing Concerned About Future Housing: No Difficulty Paying Gas/Electric Bills: No Difficulty Paying for Meds: No Currently Unemployed: No Education: Bachelor's Degree Difficulty w/ Childcare or Family Care: No Living arrangements: with family Additional living arrangements comments: Lives with family in [place]. Occupation/Education: occupation Additional occupation/education comments: [place] [email or web address]. Spiritual care concerns: No Meds Home Medications and Allergies Home Medications Medication Instructions Recorded Confirmed Type escitalopram oxalate 20 mg tablet 20 mg PO DAILY 08/27/23 01/01/24 History hydroxyzine HCl 10 mg tablet 10 mg PO QID PRN (Drug) Ingestion 08/27/23 01/01/24 History Allergies Allergy/AdvReac Type Severity Reaction Status Date / Time Sulfa (Sulfonamide Allergy Intermediate rash Verified 01/01/24 18:09 Antibiotics) beeswax Allergy Unknown rash/swelli Verified 01/01/24 18:09 ng nickel Allergy Unknown rash Verified 01/01/24 18:09 Vital Signs Vital Signs - 24 hr 01/01/24 11:40 01/01/24 12:40 Temperature 97.6 F Pulse Rate
[2024-01-01] MEDS: SODIUM CHLORIDE 0.9% IV 1,000 ML 150 ML IV CONT (16:25)
[2024-01-01 17:15] VITALS: BP 127/82; PULSE 68; RESP 18; O2SAT 100
--- NOTE | 2024-01-01 17:30 | PC.NURSE ---
This patient, Melissa Jha, was admitted to Virtual Bed 3rd Floor-1. Patient/family oriented to hospital policies and general routines including ID bracelet, bed and alarms, visiting hours, pain management, procedures, bathroom and other care routines, personal items, smoking policy, room service/diet, and visiting hours. Information on how to activate the Rapid Response Team has been discussed. Patient/Family are encouraged to report perceived risks to care and to ask questions if they do not understand what they are told or what they should do.
[2024-01-01 17:36] VITALS: BMI 34.3
[2024-01-01 17:45] VITALS: BP 143/84; PULSE 72; RESP 18; TEMP 35.9; O2SAT 100
[2024-01-01] MEDS: HYDROcodone/acetaminophen (*CRX) 5-325 MG TABLET 1 TAB PO (18:35)
[2024-01-01 21:31] VITALS: BP 122/78; PULSE 74; RESP 20; TEMP 36.6; O2SAT 100
[2024-01-02] MEDS: ONDANSETRON INJ 4 MG/2 ML VIAL IV PUSH (01:29)
[2024-01-02] MEDS: HYDROcodone/acetaminophen (*CRX) 5-325 MG TABLET 1 TAB PO (01:29)
[2024-01-02] MEDS: SODIUM CHLORIDE 0.9% IV 1,000 ML 100 ML IV CONT (01:34)
[2024-01-02 05:46] VITALS: BP 118/76; PULSE 62; RESP 16; TEMP 36.6; O2SAT 100
[2024-01-02 06:56] LABS: Hematocrit 36.6 % (37.0-47.0); Hemoglobin 11.2 g/dL (12.0-15.0); Mean Corpuscular HGB Conc 30.6 g/dl (32-36); Mean Corpuscular Hemoglobin 24.7 pg (26-34); Mean Corpuscular Volume 80.6 fl (80-100); Mean Platelet Volume 10.7 fl (7.4-10.4); Platelet Count Result 322 k/mm3 (150-375); Red Blood Count 4.54 M/mm3 (4.2-5.4); Red Cell Distribution Width 15.7 % (11.5-14.5); White Blood Count 6.1 K/mm3 (4.5-10.0)
[2024-01-02 07:18] LABS: Alanine Aminotransferase 17 U/L (6-35); Albumin Level 3.1 g/dL (3.5-5.1); Alkaline Phosphatase 97 U/L (38-126); Anion Gap 6 mmol/L (8-16); Aspartate Amino Transferase 29 U/L (14-36); Bilirubin,Total 0.5 mg/dL (0.2-1.3); Blood Urea Nitrogen 3 mg/dL (7-17); Calcium 8.1 mg/dL (8.4-10.2); Carbon Dioxide 22 mmol/L (22-30); Chloride 109 mmol/L (98-107); Estimated CRCL calculation 141 ml/min; Estimated Glomerular Filt Rate > 60; Glucose 89 mg/dL (65-110); Magnesium 1.7 mg/dL (1.6-2.3); Potassium 3.3 mmol/L (3.4-5.0); Sodium 137 mmol/L (137-145)
[2024-01-02 08:41] LABS: Iron 105 ug/dL (37-170)
[2024-01-02 08:50] LABS: Percent Iron Saturation 29 % (20-50)
[2024-01-02] MEDS: PANTOPRAZOLE SODIUM IV 40 MG VIAL IV PUSH (08:52)
[2024-01-02] MEDS: ESCITALOPRAM OXALATE 10 MG TABLET 20 MG PO (08:52)
[2024-01-02] MEDS: POTASSIUM CHLORIDE INJ 40 MEQ in SODIUM CHLORIDE 0.9% IV 500 ML 130 MEQ IVPB (08:53)
--- NOTE | 2024-01-02 11:14 | PM.IMPN ---
Progress Note: A&P Assessment and Plan (1) Abdominal pain: Code(s): R10.9 - Unspecified abdominal pain Status: Acute (2) Hypokalemia: Code(s): E87.6 - Hypokalemia Status: Acute (3) Inflammatory bowel disease: Code(s): K52.9 - Noninfective gastroenteritis and colitis, unspecified Status: Acute (4) Systemic lupus erythematosus: Code(s): M32.9 - Systemic lupus erythematosus, unspecified Status: Acute Plan ABD Pain -Colitis vs inflammatory -No ABX a this time WBC 6 -IV fluids -clear liquids -CT showing small bowel -GI consulted -Colonoscopy 01/03 -bowel prep -antimetic PRN Hypokalemia -Monitor and replenished -Diarrhea improving Code status: Full code per patient DVT prophylaxis: SCD Stress ulcer prophylaxis: Protonix 40 BID PT/OT notes: Ambulatory Disposition: patient admitted to medical-surgical unit plan is for colonoscopy 01/03 continue with IV fluids and monitor electrolytes replenish as needed. patient ambulatory and will return to home when medically stable. -Patient's previous records reviewed on admission -ER notes reviewed in detail on admission -discussed all findings and current treatment plan with patient/Family/POA -Consultations reviewed for recommendations -Patient's disposition for safe discharge discussed with assistant case manager Dictation performed by [employer] direct speech recognition software, therefore tint layer variants and typographical errors may occur. Time Spent With Patient Time with patient: 15 - 25 minutes Subjective Date/time seen: 01/02/24 11:14 Interval history: Chief Complaint: Abdominal pain. Narrative: This is a very pleasant 28-year-old female with suspected history of systemic lupus erythematosus, depression, and anxiety who presented to the emergency department via private vehicle from home for evaluation of abdominal pain. The patient provides the following history. She has not been feeling well for couple of days with diffuse, lower abdominal discomfort, nausea, nonbloody and nonbilious emesis (up to 8 times a day), and several episodes of diarrhea a day. She presented to urgent care and was referred to the ED for further evaluation. She denies fever, chills, and sweats. No cold or flu symptoms. She denies hematemesis, melena, and hematochezia. She denies recent travel, antibiotic use, and sick contacts. Weight has remained stable. At the time of my evaluation she is resting comfortably and reports feeling a bit better. She had a bowel movement after being admitted to the floor reports that it was more formed than it has been. She continues to have some mild nausea. In the ED: She was afebrile on arrival with stable blood pressures. Labs were significant for a WBC count of 6.3, hemoglobin 12.5, potassium 3.3, creatinine 0.50, total bilirubin 0.8, AST 43, alkaline phosphatase 129, total protein 9.0, lipase 32. Urinalysis was unremarkable. CT of the abdomen and pelvis showed findings of the small bowel which could reflect inflammatory bowel disease. With further questioning she reports that her cousin has Crohn's disease and her paternal side has a strong family history of autoimmune disease including lupus. She is being admitted in this setting for pain control and GI consultation. 01/02: Patient reports feeling better today and tolerating clear liquids, plan for colonoscopy 01/03. Patient did have tenderness to palpation RLQ. Review of Systems Review of Systems: Twelve systems were reviewed and are negative except for as per HPI. All systems reviewed & are unremarkable except as noted in HPI and below Exam Narrative: General: Well-developed, nontoxic-appearing female supine in bed. HEENT: Normocephalic, atraumatic. PERRL, EOMI. Sclera anicteric. Tacky mucous membranes. Neck: Supple. Respiratory: Lungs are clear to auscultation bilaterally. Cardiovascular: Regular rate a
--- NOTE | 2024-01-02 11:51 | WPDGICN ---
Assessment and Plan Assessment and plan (1) Abdominal pain: Code(s): R10.9 - Unspecified abdominal pain Status: Acute Assessment and Plan: this all began at the same time on . The pain has persisted. It is primarily on the right side especially right lower quadrant. (2) Nausea and vomiting: Code(s): R11.2 - Nausea with vomiting, unspecified Status: Acute Assessment and Plan: She has had no vomiting since admission but we have only tried her on clear liquids and she is not particularly hungry vomiting began morning and persisted through Wednesday when she had gone to urgent care 1st and then the emergency room (3) Chronic diarrhea: Code(s): K52.9 - Noninfective gastroenteritis and colitis, unspecified Status: Acute Assessment and Plan: her stools have been somewhat loose for the past couple months but not to the extent they have been the last 2 days when she has had watery diarrhea. She has had no blood her stools. (4) Systemic lupus erythematosus: Code(s): M32.9 - Systemic lupus erythematosus, unspecified Status: Acute Assessment and Plan: she has been investigated by Rheumatology at [facility] for possible lupus. She also has been told she has erythema nodosa. This can also be seen in Crohn's disease and raises the possibility of inflammatory bowel disease. (5) Abnormal CT scan, gastrointestinal tract: Code(s): R93.3 - Abnormal findings on diagnostic imaging of other parts of digestive tract Status: Acute Assessment and Plan: CT scan shows an area of possible inflammation the small bowel. FINDINGS: Minimal dependent atelectasis is present in the lung bases. The heart size is normal. The liver, spleen, pancreas, gallbladder, and adrenal glands are normal. The kidneys are unremarkable. No pathologically enlarged abdominal or pelvic lymph nodes are identified. No free intraperitoneal gas or evidence of bowel obstruction. There is there is submucosal fat deposition in the wall of the terminal ileum. There are some areas of mild wall thickening and increased enhancement in nondistended loops of small bowel. Plan will keep her on clear liquid diet for now serology for inflammatory bowel disease ordered stool cultures ordered. Bacterial infections, particularly Salmonella can have an appearance of regional enteritis. GI Consult Note Consult date/time: 01/02/24 11:51 HPI: Melissa Jha is a 28 year old female who is in generally very good health he became ill on . On morning she developed nausea with vomiting and diarrhea. This persisted over the next few days and subsequently she went to urgent care on Wednesday. There she was found to be very tender on palpation. They advised her to go to the emergency room. She subsequently has CT scan of the abdomen that showed irregularity the terminal ileum suggestive of possible inflammatory bowel disease. She denies recent weight loss. Her stools have been somewhat loose lately. She has never had blood her stools. She does have a cousin who has Crohn's disease. Review of Systems Review of Systems: All systems reviewed & are unremarkable except as noted in HPI and below PMFSH Past Medical History Medical History Anxiety Depression Systemic lupus erythematosus Presumed diagnosis. She has an appointment with Rheumatology at [place] in the next couple of months. 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 Family History Family History Other Cervical cancer Diabetes mellitus Kidney failure Grandparent Diabetes mellitus Lung cancer Mother Diabetes mellitus Hypertension Social History Social History Social History: Surrogate medical decis
[2024-01-02 12:44] LABS: CRP 0.7 mg/dL (<1.0)
[2024-01-02 12:53] LABS: IFOB Positive Control Positive; Immunochemical Fecal Occult Bl Negative (N)
[2024-01-02 12:57] LABS: Influenza A QL RT-PCR Negative (Negative); Influenza B QL RT-PCR Negative (Negative); RSV RNA, RT-PCR Negative (Negative); SARS-CoV-2 RNA PCR Negative (Negative)
[2024-01-02 12:57] LABS: Procalcitonin < 0.0 ng/mL
[2024-01-02 14:00] VITALS: BP 122/82; PULSE 80; RESP 20; TEMP 36.3; O2SAT 100
[2024-01-02 21:37] VITALS: BP 131/86; PULSE 86; RESP 20; TEMP 36.6; O2SAT 98
[2024-01-02] MEDS: ONDANSETRON HCL ODT 4 MG TABLET PO (22:59)
[2024-01-03 06:00] VITALS: BP 132/88; PULSE 85; RESP 20; TEMP 36.3; O2SAT 99
[2024-01-03 06:41] LABS: Hematocrit 38.3 % (37.0-47.0); Hemoglobin 11.7 g/dL (12.0-15.0); Mean Corpuscular HGB Conc 30.5 g/dl (32-36); Mean Corpuscular Hemoglobin 24.9 pg (26-34); Mean Corpuscular Volume 81.7 fl (80-100); Mean Platelet Volume 10.6 fl (7.4-10.4); Platelet Count Result 327 k/mm3 (150-375); Red Blood Count 4.69 M/mm3 (4.2-5.4); Red Cell Distribution Width 15.9 % (11.5-14.5); White Blood Count 6.4 K/mm3 (4.5-10.0)
[2024-01-03 06:55] LABS: Alanine Aminotransferase 20 U/L (6-35); Albumin Level 3.4 g/dL (3.5-5.1); Alkaline Phosphatase 109 U/L (38-126); Anion Gap 5 mmol/L (8-16); Aspartate Amino Transferase 33 U/L (14-36); Bilirubin,Total 0.5 mg/dL (0.2-1.3); Carbon Dioxide 27 mmol/L (22-30); Chloride 104 mmol/L (98-107); Estimated CRCL calculation 141 ml/min; Estimated Glomerular Filt Rate > 60; Glucose 114 mg/dL (65-110); Potassium 3.8 mmol/L (3.4-5.0); Sodium 136 mmol/L (137-145)
--- NOTE | 2024-01-03 07:06 | WPDGIPROGNO ---
Progress Note: A&P Assessment and Plan (1) Abdominal pain: Code(s): R10.9 - Unspecified abdominal pain Status: Acute Assessment and Plan: this all began at the same time on . The pain has persisted. It is primarily on the right side especially right lower quadrant. (2) Nausea and vomiting: Code(s): R11.2 - Nausea with vomiting, unspecified Status: Acute Assessment and Plan: She has had no vomiting since admission but we have only tried her on clear liquids and she is not particularly hungry vomiting began morning and persisted through Wednesday when she had gone to urgent care 1st and then the emergency room (3) Chronic diarrhea: Code(s): K52.9 - Noninfective gastroenteritis and colitis, unspecified Status: Acute Assessment and Plan: her stools have been somewhat loose for the past couple months but not to the extent they have been the last 2 days when she has had watery diarrhea. She has had no blood her stools. 01/03/2024 so far stool cultures are negative. (4) Systemic lupus erythematosus: Code(s): M32.9 - Systemic lupus erythematosus, unspecified Status: Acute Assessment and Plan: she has been investigated by Rheumatology at [facility] for possible lupus. She also has been told she has erythema nodosa. This can also be seen in Crohn's disease and raises the possibility of inflammatory bowel disease. (5) Abnormal CT scan, gastrointestinal tract: Code(s): R93.3 - Abnormal findings on diagnostic imaging of other parts of digestive tract Status: Acute Assessment and Plan: CT scan shows an area of possible inflammation the small bowel. FINDINGS: Minimal dependent atelectasis is present in the lung bases. The heart size is normal. The liver, spleen, pancreas, gallbladder, and adrenal glands are normal. The kidneys are unremarkable. No pathologically enlarged abdominal or pelvic lymph nodes are identified. No free intraperitoneal gas or evidence of bowel obstruction. There is there is submucosal fat deposition in the wall of the terminal ileum. There are some areas of mild wall thickening and increased enhancement in nondistended loops of small bowel. 01/03/2024 will obtain small bowel series today. If unremarkable or no significant obstruction will consider discharge if she can tolerate diet Plan will keep her on clear liquid diet for now serology for inflammatory bowel disease ordered stool cultures ordered. Bacterial infections, particularly Salmonella can have an appearance of regional enteritis. Subjective Date/time seen: 01/03/24 07:06 she feels much better today. The pain has subsided substantially. Still having some loose stools. Nausea is better. She had a wave of it last night but actually feels hungry today. Exam Const: General: cooperative and healthy appearing Orientation/consciousness: patient oriented x3 HENMT: Head: normal to inspection Ears: hearing grossly normal bilaterally Mouth: Yes Normal oral and palatal mucosa present Eyes: General: appearance normal, both eyes and all related structures Neck: Neck: normal visual inspection Chest: Chest palpation & inspection: normal inspection of the chest Resp: Effort & Inspection: normal respiratory effort Auscultation: clear to auscultation bilaterally Cardio: Rate: regular rate Rhythm: regular rhythm GI: Inspection: normal to inspection GI Palp: Yes Soft to palpation, Yes Tenderness to palpation present (GI) ( Minimal right lower quadrant), No Guarding due to palpation present (GI), Yes No hepatosplenomegaly present and No Palpable mass present Auscultation: normal bowel sounds Skin: General skin exam: normal color and no jaundice Neuro: General: patient oriented x3 Speech: normal speech Objective Data Vital Signs Vital Signs: Vital Signs - 24 hr 01/02/24 14:00 01/02/24 21:37 01/03/24 06:00 Tempera
[2024-01-03] MEDS: ESCITALOPRAM OXALATE 10 MG TABLET 20 MG PO (09:14)
[2024-01-03 10:53] LABS: Blood Urea Nitrogen < 2 mg/dL (7-17)
[2024-01-03] MEDS: PANTOPRAZOLE 40 MG TABLET PO (13:17)
[2024-01-03 13:48] VITALS: BP 137/84; PULSE 80; RESP 20; TEMP 36.5; O2SAT 100
--- NOTE | 2024-01-03 16:08 | PM.DS ---
DS: Admitting Diagnosis Discharge Date 01/03/2024 Admitting Diagnosis ABD Pain Inflammatory bowel disease Colitis Hypokalemia N/V DS: Discharge Diagnosis Discharge Diagnosis (1) Abdominal pain: Qualifiers: Abdominal location: lower abdomen, unspecified Qualified Code(s): R10.30 - Lower abdominal pain, unspecified Code(s): R10.9 - Unspecified abdominal pain Status: Acute (2) Hypokalemia: Code(s): E87.6 - Hypokalemia Status: Acute (3) Inflammatory bowel disease: Code(s): K52.9 - Noninfective gastroenteritis and colitis, unspecified Status: Acute (4) Systemic lupus erythematosus: Code(s): M32.9 - Systemic lupus erythematosus, unspecified Status: Acute Plan Crohns' Disease -Low fiber diet -Budesonide 9mg daily -Follow-up Dr. Holman 2 weeks -Monitor bowel movements and stool for increased diarrhea or bloody stool DS: Summary Hospital Course Reason for hospitalization: ABD Pain N/V Diarrhea Hypokalemia -Inflammatory bowel Hospital Course: This is a very pleasant 28-year-old female with suspected history of systemic lupus erythematosus, depression, and anxiety who presented to the emergency department via private vehicle from home for evaluation of abdominal pain. The patient provides the following history. She has not been feeling well for couple of days with diffuse, lower abdominal discomfort, nausea, nonbloody and nonbilious emesis (up to 8 times a day), and several episodes of diarrhea a day. She presented to urgent care and was referred to the ED for further evaluation. She denies fever, chills, and sweats. No cold or flu symptoms. She denies hematemesis, melena, and hematochezia. She denies recent travel, antibiotic use, and sick contacts. Weight has remained stable. At the time of my evaluation she is resting comfortably and reports feeling a bit better. She had a bowel movement after being admitted to the floor reports that it was more formed than it has been. She continues to have some mild nausea. In the ED: She was afebrile on arrival with stable blood pressures. Labs were significant for a WBC count of 6.3, hemoglobin 12.5, potassium 3.3, creatinine 0.50, total bilirubin 0.8, AST 43, alkaline phosphatase 129, total protein 9.0, lipase 32. Urinalysis was unremarkable. CT of the abdomen and pelvis showed findings of the small bowel which could reflect inflammatory bowel disease. With further questioning she reports that her cousin has Crohn's disease and her paternal side has a strong family history of autoimmune disease including lupus. She is being admitted in this setting for pain control and GI consultation. 01/02: Patient reports feeling better today and tolerating clear liquids, plan for colonoscopy 01/03.? Patient did have tenderness to palpation RLQ. 01/03: Discharged Patient underwent bowel series and tolerated well which did show chronic terminal ileitis consistent with Crohn's disease. Paient was tolerating a regular diet following exam and denied ABD pain, N/V and resolution of diarrhea. Patient was discharged to to home with family and started on budesonide 9mg daily and will have follow-up Dr. Holman in 2 weeks. Status at Discharge Functional status at discharge: independent ambulation Overall status at discharge: patient is back to baseline Time Spent with Patient Time attestation: Total time spent providing and/or coordinating discharge services: Exam Narrative: General: Well-developed, nontoxic-appearing female supine in bed. HEENT: Normocephalic, atraumatic. PERRL, EOMI. Sclera anicteric. Tacky mucous membranes. Neck: Supple. Respiratory: Lungs are clear to auscultation bilaterally. Cardiovascular: Regular rate and rhythm with S1-S2. Gastrointestinal: Abdomen is soft and nondistended with positive bowel sounds. She is non-tender today in all four quadrants. No guarding or rebound tenderness. No organomegaly noted.
[2024-01-07 21:17] LABS: Calprotectin, Stool 140 mcg/g
[2024-01-07 21:24] LABS: ANCA Screen Negative (Negative); Myeloperoxidase Ab <1.0 AI (<1.0); Proteinase-3 Ab <1.0 AI (<1.0); S cerevisiae Ab (IgA) 5.9 U (<=20.0); S cerevisiae Ab (IgG) 19.9 U (<=20.0)
== END 2024-01-03 16:25 | disposition home or self-care (01) ==
LOC: ANHED 14:50 → ANH3MEDSUR 16:34
PROVIDERS: Internal Medicine Gastroenterology; Nurse Practitioner Family; Physician Assistant; Admitting Provider Internal Medicine; Emergency Provider Emergency Medicine; Visit Provider Internal Medicine
DX: K52.9 Noninfective gastroenteritis and colitis, unspecified (principal); E87.6 Hypokalemia; M32.9 Systemic lupus erythematosus, unspecified; F32.A Depression, unspecified; F41.9 Anxiety disorder, unspecified; Z20.822 Contact with and (suspected) exposure to COVID-19; Z79.899 Other long term (current) drug therapy
CPT/HCPCS: 36415; 74177; 74250; 80053; 81003; 81025; 82274; 83540; 83550; 83690; 83735; 83993; 84145; 85025; 85027; 86036; 86140; 86671; 87045; 87427; 87449; 87637; 96361; 96374; 96375; 99285; A9270; C9113; G0378; J1170; J2405; J3480; J7030; J7040; Q9967

== ENCOUNTER 2024-03-03 12:03 | Outpatient (CLI) | payer OTHER, SELFPAY ==
[2024-03-03 12:34] LABS: Appearance Urine Clear (Clear); Bilirubin Urine Negative (Negative); Blood Urine Negative (Negative); Color Urine Yellow (Yellow); Glucose Urine UA Negative (Negative); Ketones Urine Negative (Negative); Leukocyte Esterase Ur Negative LEU/UL (Negative); Nitrate Urine Negative (Negative); Protein Urine Negative (Negative); Specific Grav Ur 1.006 (1.001-1.035); Urobilinogen Urine 0.2 mg/dL (<2.0)
[2024-03-03 12:34] LABS: Hematocrit 37.1 % (37.0-47.0); Hemoglobin 11.7 g/dL (12.0-15.0); Mean Corpuscular HGB Conc 31.5 g/dl (32-36); Mean Corpuscular Hemoglobin 25.2 pg (26-34); Mean Platelet Volume 10.8 fl (7.4-10.4); Platelet Count Result 319 k/mm3 (150-375); Red Blood Count 4.64 M/mm3 (4.2-5.4); Red Cell Distribution Width 15.7 % (11.5-14.5); White Blood Count 9.6 K/mm3 (4.5-10.0)
[2024-03-03 12:35] LABS: Add Urine Microscopic? NO
[2024-03-03 13:02] LABS: Alanine Aminotransferase 15 U/L (6-35); Albumin Level 4.1 g/dL (3.5-5.1); Alkaline Phosphatase 100 U/L (38-126); Anion Gap 7 mmol/L (4-12); Aspartate Amino Transferase 19 U/L (14-36); Bilirubin,Total 0.3 mg/dL (0.2-1.3); Blood Urea Nitrogen 8 mg/dL (7-17); CRP 0.8 mg/dL (<1.0); Calcium 9.3 mg/dL (8.4-10.2); Carbon Dioxide 23 mmol/L (22-30); Chloride 107 mmol/L (98-107); Estimated Glomerular Filt Rate > 60; Glucose 100 mg/dL (65-110); Potassium 3.3 mmol/L (3.4-5.0); Sodium 137 mmol/L (137-145)
[2024-03-03 13:39] LABS: Erythrocyte Sedimentation Rate 57 mm/hr (0-20)
[2024-03-03 13:56] LABS: Iron 56 ug/dL (37-170)
[2024-03-03 14:06] LABS: Percent Iron Saturation 13 % (20-50)
[2024-03-03 14:32] LABS: Ferritin 9.98 ng/mL (6.24-137)
[2024-03-03 14:38] LABS: Hepatitis B Surface Antigen Negative (Negative)
[2024-03-03 14:43] LABS: HAV RESULT Negative (Negative); Hepatitis B Core IgM Result Negative (Negative)
[2024-03-03 14:55] LABS: Hepatitis B Surface Anti Res Negative; Hepatitis C Virus Antibody Negative (Negative)
[2024-03-06 14:18] LABS: NIL 0.09 IU/mL; Quantiferon TB Plus, 1T NEGATIVE (NEGATIVE); TB1-NIL 0.01 IU/mL; TB2-NIL 0.02 IU/mL
[2024-03-08 02:08] LABS: Hepatitis B Core Ab Total NON-REACTIVE (NON-REACTIVE)
[2024-03-08 02:55] LABS: Hepatitis A Antibody Total REACTIVE (NON-REACTIVE)
== END 2024-03-03 12:04 | disposition home or self-care (01) ==
PROVIDERS: Visit Provider Nurse Practitioner
DX: K50.00 Crohn's disease of small intestine without complications (principal); K52.9 Noninfective gastroenteritis and colitis, unspecified; R10.31 Right lower quadrant pain; R11.2 Nausea with vomiting, unspecified; R14.0 Abdominal distension (gaseous); R32 Unspecified urinary incontinence; R93.3 Abnormal findings on diagnostic imaging of other parts of digestive tract
CPT/HCPCS: 36415; 80053; 80074; 81003; 82728; 83540; 83550; 85027; 85652; 86038; 86140; 86480; 86704; 86706; 86708; 87340

== ENCOUNTER 2024-03-31 05:53 | Day surgery (SDC) | payer OTHER, SELFPAY ==
[2024-03-16 11:39] VITALS: BMI 32.3
[2024-03-17 10:16] VITALS: BMI 32.2
[2024-03-31 06:25] VITALS: BP 134/85; PULSE 113; RESP 16; TEMP 36.1; O2SAT 99
[2024-03-31] MEDS: LACTATED RINGERS 1,000 ML 150 ML IV CONT (06:35)
--- NOTE | 2024-03-31 07:08 | PM.HPGS ---
History of Present Illness History of Present Illness Consent: Risks, benefits, and alternatives have been discussed and questions answered. Patient agrees to proceed with procedure. Chief complaint: ABD Distention, Crohns Disease of SM Intestine Narrative: Melissa Jha is a 28 year old female 2 months ago with right lower quadrant pain and x-ray findings suggestive of ileitis. ? so with several loose stools per day. She then developed vomiting and abdominal to urgent care and subsequently came to the hospital in December. CT scan of the abdomen showed irregularity the terminal ileum suggestive of possible inflammatory bowel disease.? Family history of Crohn's disease in a cousin on her mother's side and a family history of Crohn's disease on her father side. Review of Systems Review of Systems: All systems reviewed & are unremarkable except as noted in HPI and below PMFSH Past Medical History Medical History Abnormal digestive system diagnostic imaging Anxiety Bloating Depression Joint pain RLQ abdominal pain Systemic lupus erythematosus Presumed diagnosis. She has an appointment with Rheumatology at [place] in the next couple of months. 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 Terminal ileitis Urinary incontinence Family History Family History Other Cervical cancer Diabetes mellitus Kidney failure Grandparent Diabetes mellitus Lung cancer Mother Diabetes mellitus Hypertension Social History Social History Social History: Surrogate medical decision maker: Suellen Jha, mother. Code status: Full code. Smoking status: Never smoker Alcohol intake: never Substance use: never Substance use type: does not use Do You Feel Safe in your Home?: Yes Lack of Transportation: No Lack of Food: Never True Current Housing: I Have Housing Concerned About Future Housing: No Difficulty Paying Gas/Electric Bills: No Difficulty Paying for Meds: No Currently Unemployed: No Education: Bachelor's Degree Difficulty w/ Childcare or Family Care: No Living arrangements: with family Additional living arrangements comments: Lives with family in [place]. Occupation/Education: occupation Additional occupation/education comments: [employer]. Spiritual care concerns: No Meds Home Medications and Allergies Home Medications Medication Instructions Recorded Confirmed Type escitalopram oxalate 20 mg tablet 20 mg PO DAILY 08/27/23 03/31/24 History budesonide 3 mg See Rx Instructions .Route 03/27/24 03/31/24 Rx capsule,delayed,extended release .COMPLEX #90 caps Allergies Allergy/AdvReac Type Severity Reaction Status Date / Time beeswax Allergy Intermediate rash/swelli Verified 03/31/24 06:24 ng nickel Allergy Intermediate rash Verified 03/31/24 06:24 Sulfa (Sulfonamide Allergy Intermediate rash Verified 03/31/24 06:24 Antibiotics) Vital Signs Vital Signs - 24 hr 03/31/24 06:25 Temperature 36.1 C L Pulse Rate 113 H Respiratory Rate 16 Blood Pressure 134/85 Pulse Oximetry 99 Oxygen Delivery Room Air Exam Const: General: alert Orientation/consciousness: patient oriented x3 Resp: Auscultation: clear to auscultation bilaterally Cardio: Rhythm: regular rhythm GI: GI Palp: Yes Soft to palpation and No Tenderness to palpation present (GI) Neuro: General: patient oriented x3 Assessment and Plan Assessment and plan (1) Nausea and vomiting: Code(s): R11.2 - Nausea with vomiting, unspecified Status: Acute Assessment and Plan: EGD with possible biopsy or dilatation or cautery. (2) Terminal ileitis: Code(s): K50.00 - Crohn's disease of small intestine without complications Status: Acute Assessment and [place]
--- NOTE | 2024-03-31 07:21 | WPDANESEPPF ---
Anes - Initial Pre Proc Eval Procedure: Operation Date: 03/31/24 08:00 Proposed Procedures p Esophagogastroduodenoscopy - Andi Holman MD s Diagnostic Colonoscopy - Andi Holman MD Date/Time: 03/31/24 07:21 Surgeon: Andi Holman MD Pre Op Diagnosis: ABD Distention, Crohns Disease of SM Intestine Patient Data Age: 28 Gender: F Height: 1.68 m Weight: 92.8 kg Last Vital Signs Temp 36.1 C L 03/31/24 06:25 Pulse 113 H 03/31/24 06:25 Resp 16 03/31/24 06:25 BP 134/85 03/31/24 06:25 Pulse Ox 99 03/31/24 06:25 O2 Del Method Room Air 03/31/24 06:25 Allergies Allergy/AdvReac Type Severity Reaction Status Date / Time beeswax Allergy Intermediate rash/swelli Verified 03/31/24 06:24 ng nickel Allergy Intermediate rash Verified 03/31/24 06:24 Sulfa (Sulfonamide Allergy Intermediate rash Verified 03/31/24 06:24 Antibiotics) Home Medications Medication Instructions Recorded Confirmed Type escitalopram oxalate 20 mg tablet 20 mg PO DAILY 08/27/23 03/31/24 History budesonide 3 mg See Rx Instructions .Route 03/27/24 03/31/24 Rx capsule,delayed,extended release .COMPLEX #90 caps Patient hx anesthesia problems: none Family hx anesthesia problems: none Results Review: All pre-operative results and documents have been reviewed as part of the pre-operative evaluation. [facility] Past Medical History Medical History Abnormal digestive system diagnostic imaging Anxiety Bloating Depression Joint pain RLQ abdominal pain Systemic lupus erythematosus Presumed diagnosis. She has an appointment with Rheumatology at [place] in the next couple of months. 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 Terminal ileitis Urinary incontinence Family History Family History Other Cervical cancer Diabetes mellitus Kidney failure Grandparent Diabetes mellitus Lung cancer Mother Diabetes mellitus Hypertension Social History Social History Social History: Surrogate medical decision maker: Suellen Jha, mother. Code status: Full code. Smoking status: Never smoker Alcohol intake: never Substance use: never Substance use type: does not use Do You Feel Safe in your Home?: Yes Lack of Transportation: No Lack of Food: Never True Current Housing: I Have Housing Concerned About Future Housing: No Difficulty Paying Gas/Electric Bills: No Difficulty Paying for Meds: No Currently Unemployed: No Education: Bachelor's Degree Difficulty w/ Childcare or Family Care: No Living arrangements: with family Additional living arrangements comments: Lives with family in [place]. Occupation/Education: occupation Additional occupation/education comments: [employer]. Spiritual care concerns: No Anes - Eval Final PreProcedure Day of Procedure 03/31/24 07:21 Patient weight: overweight Heart: regular rate and rhythm Lungs: clear to auscultation Airway: Mallampati scale class II Neurological: alert and oriented Last oral intake: >/= 8 hours ASA classification: II Emergent: no Anesthetic plan: proceed Anesthesia type and monitoring: general GIVS and standard monitoring Results Review: All pre-operative results and documents have been reviewed as part of the pre-operative evaluation. Informed Consent: The patient's anesthetic plan and its attendant risks and benefits were discussed with the patient/family/POA. Questions were solicited and answers provided to the satisfaction of the patient/family/POA.
[2024-03-31 08:08] VITALS: BP 114/80; PULSE 100; RESP 16; O2SAT 100
[2024-03-31 08:18] VITALS: BP 112/84; PULSE 90; RESP 16; O2SAT 100
--- NOTE | 2024-03-31 08:19 | WPDANESPN ---
Anes - Prog Note Post-Op Date/Time: 03/31/24 08:19 Cardiovascular status: normal Respiratory status: normal Airway patency: baseline Mental status: baseline Post-Op hydration status: normal Vital Signs: Last Vital Signs Temp 36.1 C L 03/31/24 06:25 Pulse 100 03/31/24 08:08 Resp 16 03/31/24 08:08 BP 114/80 03/31/24 08:08 Pulse Ox 100 03/31/24 08:08 O2 Del Method Room Air 03/31/24 08:08 Pain Score (VAS): 0/10 I/O: Intake & Output 03/30/24 03/31/24 03/31/24 23:59 07:59 15:59 Intake Total 300 Balance 300 Patient Feedback: Patient satisfied with anesthetic care.
[2024-03-31 08:28] VITALS: BP 121/83; PULSE 98; RESP 16; O2SAT 100
== END 2024-03-31 08:51 | disposition home or self-care (01) ==
PROVIDERS: Visit Provider Internal Medicine Gastroenterology
PROC: 0DJ08ZZ Inspection of Upper Intestinal Tract, Via Natural or Artificial Opening Endoscopic (ICD-10-PCS; CPT 43235; principal; 2024-03-31 08:00)
PROC: 0DJD8ZZ Inspection of Lower Intestinal Tract, Via Natural or Artificial Opening Endoscopic (ICD-10-PCS; CPT 45378; 2024-03-31 08:00)
DX: R11.2 Nausea with vomiting, unspecified (principal); K63.89 Other specified diseases of intestine; K21.9 Gastro-esophageal reflux disease without esophagitis
CPT/HCPCS: 45380; 43239

== ENCOUNTER 2024-03-31 11:51 | Outpatient (NON) | payer OTHER, SELFPAY | END 2024-03-31 11:52 | disposition home or self-care (01) | LOC: ANHLAB 04-03 11:54 | PROVIDERS: Visit Provider Internal Medicine Gastroenterology | DX: K50.00 Crohn's disease of small intestine without complications (principal); R93.3 Abnormal findings on diagnostic imaging of other parts of digestive tract | CPT/HCPCS: 88305 ==